=== PATIENT | male | born 2005 | race Caucasian/White ===

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

== ENCOUNTER 2024-01-14 23:58 | Emergency (ER) | payer SELFPAY ==
[2024-01-15 00:42] LABS: BASOPHILS % (AUTO) 0.3 %; EOSINOPHILS % (AUTO) 0.4 %; HGB - HEMOGLOBIN 14.6 g/dL (14.0-18.0); LYMPHOCYTES # (AUTO) 0.4 10^3/uL (1.5-3.5); LYMPHOCYTES % (AUTO) 5.5 %; MEAN CORPUSCULAR HEMOGLOBIN 28.7 pg (27.0-31.0); MEAN CORPUSCULAR VOLUME 84.6 fL (80.0-94.0); MEAN PLATELET VOLUME 8.9 fL (7.4-11.4); MONOCYTES # (AUTO) 0.4 10^3/uL (0.0-1.0); MONOCYTES % (AUTO) 6.4 %; NEUTROPHILS % (AUTO) 87.3 %; PLT - PLATELET COUNT 159 10^3/uL (130-450); RED BLOOD COUNT 5.08 10^6/uL (4.70-6.10); RED CELL DISTRIBUTION WIDTH 12.1 % (12.0-15.0); WHITE BLOOD COUNT 6.9 x10^3/uL (4.8-10.8)
[2024-01-15] MEDS: ONDANSETRON 4 MG/2 ML VIAL IVP STA (01:00)
[2024-01-15] MEDS: KETOROLAC 30 MG/ML VIAL IVP STA (01:00)
[2024-01-15] MEDS: SODIUM CHLORIDE 0.9% 1,000 ML IV STA (01:00)
[2024-01-15 01:12] LABS: ALBUMIN 4.6 g/dL (3.2-5.5); ALBUMIN/GLOBULIN RATIO 1.9 (1.0-2.2); ALKALINE PHOSPHATASE 111 IU/L (42-121); ALT ALANINE AMINOTRANSFERASE 14 IU/L (10-60); AST ASPARTATE AMINOTRANSFERASE 15 IU/L (10-42); BUN - BLOOD UREA NITROGEN 16 mg/dL (6-20); CALCIUM 9.6 mg/dL (8.5-10.3); CARBON DIOXIDE - CO2 27 mmol/L (21-32); CHLORIDE 102 mmol/L (101-111); CREATININE 0.9 mg/dL (0.6-1.3); GFR - MDRD 108 (>89); GLUCOSE 104 mg/dL (74-104); LIPASE < 10 U/L (11-82); POTASSIUM 4.1 mmol/L (3.5-4.5); SODIUM 137 mmol/L (135-145)
--- NOTE | 2024-01-15 01:36 | ED Physician Documentation ---
PD HPI NVD - Stated complaint Stated Complaint: VOMITING - Chief complaint Chief Complaint: Abd Pain - History obtained from History obtained from: Patient - Additonal information Additional information: Patient is a 18-year-old male without significant past medical history presenting for evaluation of nausea and vomiting and feeling headache and chills. Patient states that he was doing well and had lunch with pain of butter and jelly and then went to work. Around 6 PM he started feeling unwell and had several episodes of nausea and vomiting. Denies any sick contacts. No recent travel. No diarrhea. Has not taken any medications for symptoms. Review of Systems Constitutional: reports: Chills Cardiac: denies: Chest pain / pressure Respiratory: denies: Dyspnea GI: reports: Abdominal Pain, Nausea, Vomiting : denies: Dysuria PD PAST MEDICAL HISTORY - Past Medical History Past Medical History: No - Past Surgical History Past Surgical History: Yes - Present Medications Home Medications: Ambulatory Orders Medication Instructions Recorded Confirmed No Known Home Medications 01/15/24 01/15/24 - Allergies Allergies/Adverse Reactions: Allergies Allergy/AdvReac Type Severity Reaction Status Date / Time No Known Drug Allergies Allergy Verified 01/15/24 00:26 - Social History Does the pt smoke?: No Smoking Status: Never smoker Does the pt drink ETOH?: No Does the pt have substance abuse?: No - Immunizations Immunizations are current?: Yes - POLST Patient has POLST: No PD ED PE NORMAL - General General: Alert and oriented X 3, No acute distress, Well developed/nourished - HEENT HEENT: Atraumatic - Neck Neck: Supple, no meningeal sign - Cardiac Cardiac: RRR, Strong equal pulses - Respiratory Respiratory: No respiratory distress, Clear bilaterally - Abdomen Abdomen: Normal bowel sounds, Soft, Non distended, Other (Mild lower abdominal tenderness) - Derm Derm: Warm and dry - Neuro Neuro: Normal speech Results - Vitals Vitals: Vital Signs - 24 hr 01/15/24 01/15/24 00:22 01:42 Temperature 37.1 C Heart Rate 96 78 Respiratory 18 16 Rate Blood Pressure 125/65 122/61 O2 Saturation 99 97 Oxygen O2 Source Room air - Labs Labs: Laboratory Tests 01/15/24 01/15/24 00:38 00:38 WBC 6.9 RBC 5.08 Hgb 14.6 Hct 43.0 MCV 84.6 MCH 28.7 MCHC 34.0 RDW 12.1 Plt Count 159 MPV 8.9 Neut # (Auto) 6.0 Lymph # (Auto) 0.4 L [place] # (Auto) 0.4 Eos # (Auto) 0.0 Baso # (Auto) 0.0 Absolute Nucleated RBC 0.00 Nucleated RBC % 0.0 Sodium 137 Potassium 4.1 Chloride 102 Carbon Dioxide 27 Anion Gap 8.0 BUN 16 Creatinine 0.9 Estimated GFR (MDRD) 108 Glucose 104 Calcium 9.6 Total Bilirubin 1.0 AST 15 ALT 14 Alkaline Phosphatase 111 Total Protein 7.0 Albumin 4.6 Globulin 2.4 Albumin/Globulin Ratio 1.9 Lipase < 10 L PD Medical Decision Making - ED course Complexity details: reviewed results, re-evaluated patient, d/w patient ED course: Patient is a 18-year-old male presenting for evaluation of nausea and vomiting starting this evening. On exam has mild lower abdominal tenderness. CBC, chemistries were reviewed and without significant findings. Vital signs are stable. Patient feeling better after IV fluids, Zofran and Toradol.On repeat exam still has mild lower abdominal tenderness in the right lower quadrant. However patient states he is feeling much better. Offered CT imaging this evening to evaluate for appendicitis but Patient states he is feeling better would like to go home and see if this continues to improve. However understand strict return precautions with any worsening pain or ongoing symptoms. Departure - Departure Disposition: 01 Home, Self Care Clinical Impression: Nausea & vomiting Instructions: ED Abdominal Pain Appendx Poss Comments: Your labs this evening are reassuring. You were given IV fluids as well as an anti-inflammatory and fluids through an IV. I have also sent you home with some antinausea medicines. You did have some lower abdominal discomfort and we discussed options including obtaining a CT scan tonight. As you are feeling better you have opted to hold off on any imaging which is reasonable. However if you develop any worsening pain particularly in the right lower part of your abdomen you need to return immediately to the emergency department for another evaluation. In the meanwhile would recommend starting with a bland diet in the morning. Forms: PCP List Discharge Date/Time: 01/15/24 01:43
[2024-01-15] MEDS: ONDANSETRON ODT 4 MG Prepack 2 TL PRN (01:40)
[2024-01-15 01:50] VITALS: BP 122/61; O2SAT 97
== END 2024-01-15 01:43 | disposition home or self-care (01) ==
LOC: ED 23:58
DX: R11.2 Nausea with vomiting, unspecified (principal); R10.813 Right lower quadrant abdominal tenderness
CPT/HCPCS: 36415; 80053; 83690; 85025; 96374; 99283; A9270